=== PATIENT | female | born 1980 | race Caucasian/White ===

== ENCOUNTER 2019-05-01 16:57 | Emergency (ER) | payer MEDICAID ==
--- NOTE | 2019-05-01 17:27 | EKG REPORT ---
SEVERITY:- ABNORMAL ECG - SINUS RHYTHM LEFT VENTRICULAR HYPERTROPHY : Confirmed by: Nohemy Voss MD 01-May-2019 17:26:21
[2019-05-01] MEDS ORDERED: ACETAMINOPHEN 325 MG TABLET PO ONE (18:49)
[2019-05-01 18:50] VITALS: BP 165/116
--- NOTE | 2019-05-01 18:52 | ER Document Report ---
ED Medical Screen (RME) - General Chief Complaint: Chest Pain > 30 Stated Complaint: CHEST PAIN Time Seen by Provider: 05/01/19 18:36 Primary Care Provider: DARRELL TOBIN MD [Primary Care Provider] - Follow up as needed Notes: Patient is a 38-year-old female presents emergency department with a chief complaint of chest pain and high blood pressure. Patient reports after lunch today around 1 PM she was at work and developed an acute onset of chest pain with shortness of breath. Patient reports at that time she felt very flushed and hot. Patient reports dizziness and nausea. Patient reports she did check her blood pressure multiple times which did reveal 171/119, 180/120. Patient attempted to go to the urgent care but was sent here for an evaluation to rule out acute coronary syndrome. Patient reports her chest tightness has improved although still present. Patient did attempt to take 4 Tums without relief. TRAVEL OUTSIDE OF THE [place] IN LAST 30 DAYS: No - Related Data Allergies/Adverse Reactions: morphine Allergy (Verified 05/01/19 18:37) Past Medical History - Social History Chew tobacco use (# tins/day): No Frequency of alcohol use: Occasional Drug Abuse: None Physical Exam - Vital signs Vitals: Temp Pulse Resp BP Pulse Ox 98.1 F 81 17 172/111 H 99 05/01/19 17:35 05/01/19 17:35 05/01/19 17:35 05/01/19 17:35 05/01/19 17:35 Interpretation: Hypertensive - Cardiovascular Rhythm: Regular Heart sounds: Normal auscultation, S1 appreciated, S2 appreciated Course - Re-evaluation Re-evalutation: 05/01/19 18:55 PERC NEGATIVE. We will initiate a cardiac work-up as the patient does have hypertension. Blood pressure was rechecked in triage and noted to be 165/116. Patient does take metoprolol 25 mg daily. Patient reports she did take a second 25 mg around 2:30 PM this afternoon due to the elevated blood pressure. We will give patient Tylenol for her headache. I have greeted and performed a rapid initial assessment of this patient. A comprehensive ED assessment and evaluation of the patient, analysis of test results and completion of the medical decision making process will be conducted by additional ED providers. - Vital Signs Vital signs: Temp Pulse Resp BP Pulse Ox 98.1 F 78 17 165/116 H 100 02/26/20 17:35 05/01/19 18:49 05/01/19 17:35 05/01/19 18:49 05/01/19 18:49 Doctor's Discharge - Discharge Referrals: DARRELL TOBIN MD [Primary Care Provider] - Follow up as needed
--- NOTE | 2019-05-01 19:22 | RADIOLOGY REPORT (SQ) ---
EXAM DESCRIPTION: CHEST 2 VIEWS COMPLETED DATE/TIME: 05/01/2019 7:11 pm REASON FOR STUDY: CHEST PAIN, HYPERTENSION COMPARISON: None. EXAM PARAMETERS: NUMBER OF VIEWS: two views TECHNIQUE: Digital Frontal and Lateral radiographic views of the chest acquired. RADIATION DOSE: NA LIMITATIONS: none FINDINGS: LUNGS AND PLEURA: No opacities, masses or pneumothorax. No pleural effusion. MEDIASTINUM AND HILAR STRUCTURES: No masses or contour abnormalities. HEART AND VASCULAR STRUCTURES: Heart normal size. No evidence for failure. BONES: No acute findings. HARDWARE: None in the chest. OTHER: No other significant finding. IMPRESSION: NO ACUTE RADIOGRAPHIC FINDING IN THE CHEST. TECHNICAL DOCUMENTATION: JOB ID: [id number] 2010 [employer]- All Rights Reserved Reading location - IP/workstation name: [email or web address]
[2019-05-01 19:47] LABS: ABSOLUTE EOSINOPHILS # (AUTO) 0.1 10^3/uL (0.0-0.6); ABSOLUTE LYMPHOCYTES (AUTO) 1.3 10^3/uL (0.5-4.7); ABSOLUTE MONOCYTES (AUTO) 0.3 10^3/uL (0.1-1.4); ABSOLUTE NEUT (AUTO) 3.3 10^3/uL (1.7-8.2); BASOPHILS % (AUTO) 0.3 % (0-2); EOSINOPHILS % (AUTO) 1.5 % (0-6); HEMATOCRIT 41.3 % (36.0-47.0); HEMOGLOBIN 14.5 g/dL (12.0-15.5); LYMPHOCYTES % (AUTO) 25.8 % (13-45); MEAN CORPUSCULAR HEMOGLOBIN 31.4 pg (27.0-33.4); MEAN CORPUSCULAR HGB CONC 35.2 g/dL (32.0-36.0); MEAN CORPUSCULAR VOLUME 89 fl (80-97); MONOCYTES % (AUTO) 5.2 % (3-13); PLATELET COUNT 198 10^3/uL (150-450); RED BLOOD COUNT 4.63 10^6/uL (3.72-5.28); SEGMENTED NEUTROPHILS % (AUTO) 67.2 % (42-78); TOTAL CELLS COUNTED % (AUTO) 100 %; WHITE BLOOD COUNT 4.9 10^3/uL (4.0-10.5)
[2019-05-01 20:06] LABS: ALBUMIN 4.6 g/dL (3.5-5.0); ANION GAP 10 (5-19); ASPARTATE AMINO TRANSFERASE 34 U/L (14-36); BILIRUBIN,DIRECT 0.3 mg/dL (0.0-0.4); BILIRUBIN,TOTAL 0.8 mg/dL (0.2-1.3); BLOOD UREA NITROGEN 9 mg/dL (7-20); CALCIUM 10.1 mg/dL (8.4-10.2); CARBON DIOXIDE 28 mmol/L (22-30); CHLORIDE 100 mmol/L (98-107); GLUCOSE 88 mg/dL (75-110); NEONATAL BILIRUBIN RESULT 0.5 mg/dL (0.1-1.1); POTASSIUM 4.1 mmol/L (3.6-5.0); TOTAL PROTEIN 8.4 g/dL (6.3-8.2)
[2019-05-01 20:07] LABS: ALKALINE PHOSPHATASE 73 U/L (38-126)
== END 2019-05-01 21:51 | disposition left against medical advice (07) ==
LOC: ER 16:57
DX: Z53.21 Procedure and treatment not carried out due to patient leaving prior to being seen by health care provider (principal); R07.9 Chest pain, unspecified; R06.02 Shortness of breath; I10 Essential (primary) hypertension; R42 Dizziness and giddiness; R11.0 Nausea; Z88.8 Allergy status to other drugs, medicaments and biological substances
CPT/HCPCS: 93005; 99281; 36415; 84443; 85025; 80053; 84484; 71046; 93010; J3490